=== PATIENT | male | born 1940 | race Hispanic/Latino ===

== ENCOUNTER → 2020-06-14 | Outpatient (CLI) | payer OTHER, MEDICARE | END | disposition home or self-care (01) | LOC: OIH 15:06 | PROVIDERS: ATTEND Internal Medicine | DX: I10 Essential (primary) hypertension (principal); M47.814 Spondylosis without myelopathy or radiculopathy, thoracic region | CPT/HCPCS: 71046 ==

== ENCOUNTER 2022-10-06 23:06 | Emergency (ER) | payer OTHER, MEDICARE ==
[2022-10-07] MEDS ORDERED: IBUP-1493 PO (00:29)
[2022-10-07 01:38] VITALS: BP 135/72
== END 2022-10-07 01:44 | disposition home or self-care (01) ==
LOC: EDH 23:06
DX: M19.012 Primary osteoarthritis, left shoulder (principal)
CPT/HCPCS: 73030

== ENCOUNTER → 2025-04-05 | Outpatient (CLI) | payer OTHER, MEDICARE ==
[~2025-04-05] MED LIST: IBUP-1493 PO
--- NOTE | 2025-04-05 13:37 | HMCIMG ---
Left BREAST ULTRASOUND: Graft 85-year-old male with left breast lump Finding: Real-time examination of the [right/left] breast demonstrates heterogeneous echotexture throughout the left breast without evidence of focal solid or cystic masses. This finding is suggesting of male gynecomastia. 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 No mass or cyst seen. CATEGORY 2: BENIGN FINDINGS Recommend monthly self breast exam as well as annual clinical examination. A negative x-ray should not delay biopsy if a dominant or clinically suspicious mass is present, since 8-10% of cancers are not identified by mammography. Dense breasts particularly, may obscure an underlying neoplasm. Some of these may be detected clinically and therefore, clinical examination is an essential part of breast evaluation. .
--- NOTE | 2025-04-05 13:40 | HMCIMG ---
DIGITAL bilateral DIAGNOSTIC MAMMOGRAM Technique: The digital mammographic examination of both breasts in craniocaudal, mediolateral oblique views along with CAD was obtained. Ultrasound was also performed of the left breast. History: This is a 85 years year-old male with left breast pain. Patient has no family history of breast cancer. Reference:Baseline mammogram. Breast composition: Breast composition B: There are scattered areas of fibroglandular density. Finding: The digital mammographic examination of breasts in craniocaudal and mediolateral oblique view along with CAD demonstrates bilateral subareolar breast tissue more pronounced on the left as compared to the right. Ultrasound demonstrate no lesion seen.. There is no evidence of any dendritic mass, cluster microcalcification or architectural distortion. The retromammary fat appears to be normal. IMPRESSION: NO RADIOGRAPHIC EVIDENCE OF MALIGNANT CHANGES. FINAL ASSESSMENT: ACR: BI-RAD- 2. Benign: Also a negative assessment; finding(s) benign abnormalities. Management: Routine mammography screening. Likelihood of Cancer: Essentially 0% likelihood of malignancy. NOTE: IF A WORK-UP OF THIS PATIENT LEADS TO A BIOPSY, PLEASE FORWARD A COPY OF THE PATHOLOGY REPORT TO OUR OFFICE REQUIRED BY [facility] JUNE 07, 1994. A NEGATIVE MAMMOGRAM SHOULD NOT PRECLUDE BIOPSY OF A CLINICALLY PALPABLE SUSPICIOUS MASS, 10% OF BREAST CANCERS ARE MAMMOGRAPHICALLY OCCULT. THIS MAMMOGRAPHY FACILITY IS FULLY ACCREDITED BY THE [employer]OD AND DRUG [employer]MIN[employer]ATION (FDA). THANK YOU FOR THIS REFERRAL.
== END | disposition home or self-care (01) ==
LOC: RAH 11:08
PROVIDERS: ATTEND Internal Medicine
DX: N62 Hypertrophy of breast (principal); N63.24 Unspecified lump in the left breast, lower inner quadrant; R92.322 Mammographic fibroglandular density, left breast; N64.4 Mastodynia
CPT/HCPCS: 76641; 77066